=== PATIENT | male | born 1985 | race Caucasian/White ===

== ENCOUNTER 2017-03-10 13:52 | Emergency (ER) | payer SELFPAY ==
[2017-03-10] MEDS ORDERED: Lidocaine 1% (PF) 30 ML VIAL ONE (14:39)
[2017-03-10] MEDS ORDERED: Adacel (T-DAP) 0.5 ML VIAL ONE (14:57)
--- NOTE | 2017-03-10 15:12 | RAD ---
FOUR VIEWS LEFT KNEE: Date: 03-10-17 Comparison: None. History: Pain. FINDINGS: Linear calcification is seen near the medial femoral condyle suggesting prior MCL injury. No knee rema nt effusion, displaced fracture or evidence of dislocation seen. IMPRESSION: No acute findings. POS: [facility]
[2017-03-10] MEDS ORDERED: Bacitracin Zinc 1 Packet ONE (16:27)
[2017-03-10] MEDS ORDERED: Ondansetron HCl/PF 4 MG/2 ML Vial ONE (17:25)
[2017-03-10] MEDS ORDERED: Fentanyl 100 MCG/2 ML VIAL ONE (17:25)
== END 2017-03-10 16:36 | disposition home or self-care (01) ==
LOC: ERS 13:52
DX: L02.416 Cutaneous abscess of left lower limb (principal); F17.210 Nicotine dependence, cigarettes, uncomplicated
CPT/HCPCS: 10060; 90471; 90715; 99406; J2001; J2405; J3010

== ENCOUNTER 2017-06-05 13:18 | Emergency (ER) | payer SELFPAY | END 2017-06-05 13:46 | disposition home or self-care (01) | LOC: ERS 13:18 | DX: L25.3 Unspecified contact dermatitis due to other chemical products (principal); F17.210 Nicotine dependence, cigarettes, uncomplicated | CPT/HCPCS: 99282 ==

== ENCOUNTER 2018-06-23 10:22 | Emergency (ER) | payer SELFPAY | END 2018-06-23 12:59 | disposition home or self-care (01) | LOC: ERS 10:22 | DX: B86 Scabies (principal); F17.210 Nicotine dependence, cigarettes, uncomplicated | CPT/HCPCS: 99282 ==

== ENCOUNTER 2018-11-16 11:27 | Emergency (ER) | payer SELFPAY | END 2018-11-16 13:57 | disposition home or self-care (01) | LOC: ERS 11:27 | DX: M79.602 Pain in left arm (principal); R20.0 Anesthesia of skin; F17.210 Nicotine dependence, cigarettes, uncomplicated | CPT/HCPCS: 99283 ==

== ENCOUNTER 2019-05-01 11:51 | Emergency (ER) | payer OTHER ==
[2019-05-01] MEDS ORDERED: Ondansetron PF 4 MG/2 ML Vial ONE (12:56)
[2019-05-01] MEDS ORDERED: Acetaminophen 500 MG TAB ONE (12:56)
[2019-05-01 13:08] LABS: #Basophils 0.1 thou/uL (0.0-0.2); #Eosinphils 0.1 thou/uL (0.0-0.7); #Lymphocytes 1.7 thou/uL (1.20-3.40); #Monocytes 0.4 thou/uL (0.11-0.59); #Neutrophils 3.6 thou/uL (1.40-6.50); %Basophils 1.8 % (0.0-1.0); %Eosinophils 1.9 % (0.0-10.0); %Lymphocytes 28.3 % (21.0-51.0); %Monocytes 7.3 % (0.0-10.0); %Neutrophils 60.7 % (42.0-75.0); Hemoglobin 17.4 g/dL (14.0-18.0); Mean Corpuscular HGB CONC 33.7 g/dL (32.0-36.0); Mean Corpuscular Hemoglobin 29.2 pg (27.0-31.0); Mean Corpuscular Volume 86.6 fL (78.0-98.0); Platelet Count 244 thou/uL (130-400); RBC Distribution Width 12.3 % (11.5-14.5); Red Blood Cell (RBC) Count 5.96 mill/uL (4.70-6.10); White Blood Cell (WBC) Count 5.9 thou/uL (4.8-10.8)
--- NOTE | 2019-05-01 13:14 | RAD ---
Exam: Chest one view HISTORY:Cough with fever. Headache. Comparison: 11/02/2012 FINDINGS: Cardiac silhouette: Normal Aorta: Unremarkable Pulmonary vessels: Normal Costophrenic angles: Clear LUNGS: No masses or consolidation. Pneumothorax: None Osseous abnormalities: None IMPRESSION: No acute cardiopulmonary process.
[2019-05-01 13:37] LABS: ALT (SGPT) 31 U/L (8-55); AST (SGOT) 28 U/L (5-34); Albumin 4.7 g/dL (3.5-5.0); Alkaline Phosphatase 77 U/L (40-110); Anion Gap 14 mmol/L (10-20); BUN (Urea Nitrogen) 10 mg/dL (8.9-20.6); Bilirubin, Total 0.4 mg/dL (0.2-1.2); Calc. Creatinine Clearance 0 mL/min (70-130); Calcium 9.9 mg/dL (7.8-10.44); Carbon Dioxide 23 mmol/L (22-29); Chloride 105 mmol/L (98-107); Estimated GFR-MDRD 84; Globulin 3.6 g/dL (2.4-3.5); Glucose 83 mg/dL (70-105); Potassium 4.5 mmol/L (3.5-5.1); Protein, Total 8.3 g/dL (6.0-8.3); Sodium 137 mmol/L (136-145)
[2019-05-01 14:14] LABS: Bilirubin Negative (Negative); Blood, Urine Negative (Negative); Clarity Clear (Clear); Glucose, Urine (Dipstick) Normal (Negative); Leukocyte Negative Leu/uL (Negative); Nitrite Negative (Negative); Protein, Urine (Dipstick) Negative (Neg-Trace); Urobilinogen Normal mg/dL (Less than 2)
--- NOTE | 2019-05-05 14:52 | EKG ---
Test Reason : Blood Pressure : / mmHG Vent. Rate : 068 BPM Atrial Rate : 068 BPM P-R Int : 164 ms QRS Dur : 094 ms QT Int : 364 ms P-R-T Axes : 043 045 025 degrees QTc Int : 387 ms Normal sinus rhythm Cannot rule out Anterior infarct , age undetermined Abnormal ECG Confirmed by MULU KING, SHAHNAZ ([id number]), content editor NISA ROBLERO ([id number]) on 05/05/2019 2:51:56 PM Referred By: MULU Confirmed By:SHAHNAZ HARDWICK MD
== END 2019-05-01 16:00 | disposition home or self-care (01) ==
LOC: ERS 11:51
DX: B34.9 Viral infection, unspecified (principal); F17.210 Nicotine dependence, cigarettes, uncomplicated
CPT/HCPCS: 71045; 80053; 81003; 84484; 85025; 87081; 87430; 87804; 93005; 96361; 96374; J2405; U0001